=== PATIENT | male | born 1995 | race Caucasian/White ===

== ENCOUNTER 2021-07-06 20:00 | Emergency (ER) | payer OTHER ==
[~2021-07-06] VITALS: Ht 172.7 cm; Wt 91.0 kg
[2021-07-06 20:13] VITALS: BP 140/86
[2021-07-06] MEDS ORDERED: CYCLOBENZAPRINE 10MG 4TABLET STARTPACK PO ONE (20:15)
[2021-07-06] MEDS ORDERED: ACETAMINOPHEN 500 MG TABLET PO ONE (20:15)
--- NOTE | 2021-07-06 20:19 | PHYS DOC ---
Adult General Chief Complaint Chief Complaint: BACK PAIN OR INJURY HPI HPI Patient is a otherwise healthy 25-year-old male in the with a past medical history of intermittent back pain who presents with low back pain, left- sided, 5 out of 10, dull and achy in nature which he thinks he did during some PT. States he has had this before and it usually goes away after a few days. States he took some ibuprofen earlier this morning but nothing else. Denies recent travels, traumas, illnesses, fevers. Denies any numbness/weakness/tingling. Denies any trouble making urine or stool. Denies any trouble sitting, standing or walking. Review of Systems Review of Systems Review of systems otherwise unremarkable except noted in HPI Allergies Allergies Allergies Coded Allergies Type Severity Reaction Last Updated Verified No Known Drug Allergies 07/06/21 No Physical Exam Physical Exam Constitutional: Well developed, well nourished, no acute distress, non-toxic appearance. [] HENT: Normocephalic, atraumatic, bilateral external ears normal, oropharynx moist, no oral exudates, nose normal. [] Neck: Normal range of motion, no tenderness, supple, no stridor. [] Back: Neurovascular exam intact, range of motion intact, some lumbar paraspinal muscle tenderness and spasm on the left Extremities: No tenderness, no cyanosis, no clubbing, ROM intact, no edema. [] Neurologic: Alert and oriented X 3, normal motor function, normal sensory funct ion, able to sit, stand and walk without issue no focal deficits noted. [] Psychologic: Affect normal, judgement normal, mood normal. [] EKG EKG [] Radiology/Procedures Radiology/Procedures [] Heart Score C/O Chest Pain: No Risk Factors: Risk Factors: DM, Current or recent (<one month) smoker, HTN, HLP, family history of CAD, obesity. Risk Scores: Risk Factors: DM, Current or recent (<one month) smoker, HTN, HLP, family history of CAD, obesity. Course & Med Decision Making Course & Med Decision Making Patient is a 25-year-old male who presents with acute on chronic low back pain Vital signs not concerning. Physical exam noted above. Given pain medicine and ice pack Discussed symptom management at home. Advised to follow-up with primary care physician to discuss MRI. Given work note. Gave return precautions to the ED. Patient grateful, verbalized understanding and agreed with plan of discharge. [] Dragon Disclaimer Dragon Disclaimer This electronic medical record was generated, in whole or in part, using a voice recognition dictation system. Departure Departure: Impression: Primary Impression: Back pain Disposition: HOME / SELF CARE / HOMELESS Condition: STABLE Referrals: PCP,UNKNOWN (PCP) Patient Instructions: Back Pain, Adult Additional Instructions: You for coming into the emergency department tonight and allowing us to take care of you. Please read the attached information carefully to go over things we discussed. Please continue a 1000 mg of Tylenol every 8 hours, 800 mg of ibuprofen every 8 hours and 50 mg of Benadryl every 6 hours as well as ice pack for symptom control at home as long as tolerated. Please take your muscle relaxers as needed with your ibuprofen, and be careful as these can make you sleepy. Please follow-up as soon as you can with your primary care physician update on ED visit and set up a follow-up to discuss need for MRI. Please make with new or concerning symptoms as discussed. DIMA AMBROCIO MD Jul 06, 2021 20:18
[2021-07-06] MEDS ORDERED: KETOROLAC 30 MG/ML VIAL. IM ONE (20:30)
== END 2021-07-06 21:05 | disposition home or self-care (01) ==
LOC: ER 20:00
DX: M54.59 Other low back pain (principal); M62.830 Muscle spasm of back
CPT/HCPCS: 96372; 99283; J1885